=== PATIENT | female | born 1960 | race Caucasian/White ===

== ENCOUNTER 2018-03-09 07:21 | Inpatient (IN) | payer OTHER ==
[~2018-03-09] VITALS: Ht 175.3 cm; Wt 118.1 kg
[2018-03-09 07:27] VITALS: Ht 175.3 cm; Wt 118.1 kg
[2018-03-09 08:00] LABS: BASOPHIL % 0.3 % (0-2); PLATELET COUNT 254 x10^3mcL (130-400)
[2018-03-09 08:13] LABS: CALCIUM 8.6 mg/dL (8.5-10.1); CARBON DIOXIDE 23.8 mmol/L (21-32); CHLORIDE SERUM 106 mmol/L (98-107); CREATININE SERUM 0.9 mg/dL (0.6-1.0); GFR1 > 60 mL/min; GLUCOSE SERUM 121 mg/dL (74-106); SODIUM SERUM 141 mmol/L (136-145)
[2018-03-09 08:17] LABS: ALKALINE PHOSPHATASE 101 U/L (46-116); ALT/SGPT 34 U/L (14-59); AST/SGOT 23 U/L (15-37); BILIRUBIN TOTAL 0.43 mg/dL (0.20-1.00); CHOLESTEROL 155 mg/dL (<200); HDL CHOLESTEROL 39 mg/dL (40-60); LIPASE 114 IU/L (73-393); TOTAL PROTEIN, SERUM 7.4 g/dL (6.4-8.2); TRIGLYCERIDES 145 mg/dL (<150)
[2018-03-09 08:21] LABS: ALBUMIN 3.3 g/dL (3.4-5.0)
[2018-03-09 08:28] LABS: FREE T4 0.89 ng/dL (0.76-1.46); FREE THYROXINE INDEX 2.5 ug/dL (1.4-4.5); T4(THYROXINE) 7.9 ug/dL (4.7-13.3)
[2018-03-09 08:30] LABS: T3 TOTAL 1.35 ng/mL
[2018-03-09] MEDS ORDERED: VERAPAMIL HCL120 M2 (09:44)
[2018-03-09] MEDS ORDERED: ASPIRIN ADULT L81 M5 PO (09:45)
[2018-03-09] MEDS ORDERED: EPZICOM1 TAB (09:45)
[2018-03-09] MEDS ORDERED: CYMBALTA20 M1 (09:45)
[2018-03-09 09:57] LABS: UA SPECIFIC GRAVITY >=1.030 (1.005-1.035); microscopic required? YES; urine erythrocyte NEGATIVE (NEGATIVE)
[2018-03-09 10:57] VITALS: BP 112/65
[2018-03-09 11:12] LABS: MAGNESIUM 2.2 mg/dL (1.8-2.4)
[2018-03-09 15:09] VITALS: BP 104/70
[2018-03-09 20:00] VITALS: BP 110/62
[2018-03-09 20:46] LABS: AMPHETAMINE QUAL UR NONE DETECTED (See below)
[2018-03-10 05:47] LABS: BASOPHIL % 0.7 % (0-2); PLATELET COUNT 258 x10^3mcL (130-400); RED CELL DISTRIBUTION WIDTH 12.3 % (11.5-14.5)
[2018-03-10 05:56] LABS: CALCIUM 8.8 mg/dL (8.5-10.1); CARBON DIOXIDE 25.8 mmol/L (21-32); CHLORIDE SERUM 104 mmol/L (98-107); CREATININE SERUM 0.8 mg/dL (0.6-1.0); GFR1 > 60 mL/min; GLUCOSE SERUM 90 mg/dL (74-106); SODIUM SERUM 138 mmol/L (136-145)
[2018-03-10 12:50] VITALS: BP 114/53
[2018-03-10 17:24] VITALS: BP 117/55
[2018-03-10 21:12] VITALS: BP 124/48
[2018-03-11 05:50] VITALS: BP 104/46
[2018-03-11 06:51] LABS: CALCIUM 9.2 mg/dL (8.5-10.1); CARBON DIOXIDE 30.2 mmol/L (21-32); CHLORIDE SERUM 102 mmol/L (98-107); CREATININE SERUM 0.8 mg/dL (0.6-1.0); GFR1 > 60 mL/min; GLUCOSE SERUM 88 mg/dL (74-106); POTASSIUM SERUM 3.8 mmol/L (3.5-5.1); SODIUM SERUM 142 mmol/L (136-145)
[2018-03-11 07:11] LABS: BASOPHIL % 0.5 % (0-2); PLATELET COUNT 276 x10^3mcL (130-400); RED CELL DISTRIBUTION WIDTH 12.9 % (11.5-14.5)
[2018-03-11 08:52] VITALS: BP 111/48
[2018-03-11 12:16] VITALS: BP 101/45
[2018-03-11 12:45] VITALS: BP 111/48
[2018-03-11] MEDS ORDERED: SOTALOL HCL80 MG PO (13:26)
[2018-03-11] MEDS ORDERED: XARELTO10 M1 PO (13:26)
[2018-03-11] MEDS ORDERED: DILTIAZEM HCL120 M2 PO (13:28)
== END 2018-03-11 13:52 | disposition other institution (70) | DRG 310 ==
LOC: ED 07:21 → IC 09:16 → DU 03-10 10:38
PROVIDERS: Specialist; ADMIT Internal Medicine
DX: I48.0 Paroxysmal atrial fibrillation (principal); J45.909 Unspecified asthma, uncomplicated; I10 Essential (primary) hypertension; R55 Syncope and collapse; E78.5 Hyperlipidemia, unspecified; I25.10 Atherosclerotic heart disease of native coronary artery without angina pectoris; Z79.82 Long term (current) use of aspirin; Z68.39 Body mass index [BMI] 39.0-39.9, adult; Z79.01 Long term (current) use of anticoagulants; Z88.4 Allergy status to anesthetic agent; Z88.8 Allergy status to other drugs, medicaments and biological substances; Z79.899 Other long term (current) drug therapy
CPT/HCPCS: 83880; 84439; 87804; A9500; J2785; J3490; J7030; Q0092